=== PATIENT | male | born 1955 | race Caucasian/White ===

== ENCOUNTER 2018-03-10 10:07 | Emergency (ER) | payer OTHER ==
[~2018-03-10] VITALS: Ht 274.3 cm; Wt 8.0 kg
[2018-03-10 10:13] VITALS: Ht 274.3 cm; Wt 8.0 kg
[2018-03-10] MEDS ORDERED: ONDANSETRON 4 MG INJ IV STA (10:53)
[2018-03-10] MEDS ORDERED: SOD CHLORIDE 0.9% 1,000 ML IV STA (10:53)
[2018-03-10] MEDS ORDERED: MECLIZINE 12.5 MG TAB PO ONE (11:00)
[2018-03-10] MEDS ORDERED: MECL12.574 PO (12:24)
--- NOTE | 2018-03-10 12:25 | ERD ---
ER Documentation Chief Complaint Chief Complaint DIZZINESS AND VOMITING TODAY HPI Patient is a 62-year-old male with no medical problems who presents with vomiting and dizziness. The patient feels lightheaded and sweaty as well. He said the symptoms started this morning. It is worse when he moves his head and feels like the room is spinning. He denies pain. He has no diarrhea. There was no blood in the vomit. He has had no treatment as of yet. ROS All systems reviewed and are negative except as per history of present illness. Medications Home Meds Active Scripts Meclizine Hcl* (Antivert*) 12.5 Mg Tab, 25 MG PO Q6H PRN for DIZZINESS, #20 TAB Prov:KEILY MORENO MD 03/10/18 Discontinued Reported Medications [None] No Conflict Check 02/06/10 Allergies Allergies: Coded Allergies: No Known Allergies (Verified Allergy, Mild, 02/06/10) PMhx/Soc Medical and Surgical Hx: pt denies Medical Hx History of Surgery: No Anesthesia Reaction: No Hx Neurological Disorder: No Hx Respiratory Disorders: No Hx Cardiac Disorders: No Hx Psychiatric Problems: No Hx Miscellaneous Medical Probl: No Hx Alcohol Use: No Hx Substance Use: No Hx Tobacco Use: No Smoking Status: Never smoker FmHx Family History: No coronary disease Physical Exam Vitals Vital Signs Date Temp Pulse Resp B/P (MAP) Pulse Ox O2 O2 Flow FiO2 Time Delivery Rate 03/10/18 69 16 121/74 100 Room Air 13:12 (90) 03/10/18 98.1 64 18 146/80 99 10:13 (102) Physical Exam Const: No acute distress Head: Atraumatic Eyes: Normal Conjunctiva ENT: Normal External Ears, Nose and Mouth. Neck: Full range of motion. No meningismus. Resp: Clear to auscultation bilaterally Cardio: Regular rate and rhythm, no murmurs Abd: Soft, non tender, non distended. Normal bowel sounds Skin: No petechiae or rashes Back: No midline or flank tenderness Ext: No cyanosis, or edema Neur: Awake and alert, cranial nerves II through XII are intact, strength is 5 out of 5 in all 4 extremities, no slurred speech Psych: Normal Mood and Affect Result Diagram: 03/10/18 1059 03/10/18 1059 Results 24 hrs Laboratory Tests Test 03/10/18 10:59 White Blood Count 8.5 10^3/ul Red Blood Count 4.99 10^6/ul Hemoglobin 14.7 g/dl Hematocrit 43.8 % Mean Corpuscular Volume 87.8 fl Mean Corpuscular Hemoglobin 29.5 pg Mean Corpuscular Hemoglobin Concent 33.6 g/dl Red Cell Distribution Width 13.7 % Platelet Count 214 10^3/UL Mean Platelet Volume 9.2 fl Immature Granulocytes % 0.400 % Neutrophils % 79.0 % Lymphocytes % 13.8 % Monocytes % 6.2 % Eosinophils % 0.5 % Basophils % 0.1 % Nucleated Red Blood Cells % 0.0 /100WBC Immature Granulocytes # 0.030 10^3/ul Neutrophils # 6.7 10^3/ul Lymphocytes # 1.2 10^3/ul Monocytes # 0.5 10^3/ul Eosinophils # 0.0 10^3/ul Basophils # 0.0 10^3/ul Nucleated Red Blood Cells # 0.0 10^3/ul Urine Color YELLOW Urine Clarity CLEAR Urine pH 5.0 Urine Specific [place] 1.021 Urine Ketones TRACE mg/dL Urine Nitrite NEGATIVE mg/dL Urine Bilirubin NEGATIVE mg/dL Urine Urobilinogen NEGATIVE mg/dL Urine Leukocyte Esterase NEGATIVE Evelio/ul Urine Hemoglobin NEGATIVE mg/dL Urine Glucose NEGATIVE mg/dL Urine Total Protein NEGATIVE mg/dl Sodium Level 141 mmol/L Potassium Level 3.8 mmol/L Chloride Level 104 mmol/L Carbon Dioxide Level 25 mmol/L Anion Gap 12 Blood Urea Nitrogen 16 mg/dl Creatinine 1.13 mg/dl Est Glomerular Filtrat Rate mL/min > 60 mL/min Glucose Level 140 mg/dl Calcium Level 9.4 mg/dl Total Bilirubin 0.2 mg/dl Direct Bilirubin 0.00 mg/dl Indirect Bilirubin 0.2 mg/dl Aspartate Amino Transf (AST/SGOT) 41 IU/L Alanine Aminotransferase (ALT/SGPT) 37 IU/L Alkaline Phosphatase 105 IU/L Troponin I < 0.012 ng/ml Total Protein 7.9 g/dl Albumin 4.5 g/dl Globulin 3.40 g/dl Albumin/Globulin Ratio 1.32 Lipase 78 U/L Current Medications Medications Dose Sig/Miguel Start Time Status Last (Trade) Ordered Route PRN Stop Time Admin Dose Reason Admin Sodium 1,000 ml @ Q1H STAT 03/10/18 DC 03/10/18 Chloride 1,000 mls/hr IV 10:53 11:00 03/10/18 11:52 Ondansetron 4 mg ONCE STAT 03/10/18 DC 03/10/18 HCl (Zofran IV 10:53 11:00 Inj) 03/10/18 10:55 Meclizine 25 mg ONCE ONCE 03/10/18 DC 03/10/18 HCl PO 11:00 11:00 (Antivert) 03/10/18 11:01 Procedures/MDM EKG read by me: Rate/Rhythm: Regular rate and rhythm at a rate of 64 Intervals: Normal Impression: No evidence of ischemia or arrhythmia Departure Diagnosis: Primary Impression: Dizziness Condition: Fair Patient Instructions: Dizziness, Unk Cause Referrals: Dr. Adams Additional Instructions: Llame al doctor MAANA y jonathan adriel CECY PARA DENTRO DE 1-2 BUENO.Dgale a la secretaria que nosotros le instruimos hacer esta cecy.Avise o llame si connell condicin se empeora antes de la cecy. Regresa aqui si peor o no mejor. KEILY MORENO MD Mar 10, 2018 12:25
[2018-03-10 13:12] VITALS: BP 121/74; PULSE 69; RESP 16
== END 2018-03-10 13:12 | disposition home or self-care (01) ==
LOC: E/R 10:07
DX: R42 Dizziness and giddiness (principal)
CPT/HCPCS: 36415; 70450; 80053; 81003; 83690; 84484; 85025; 93005; 96374; 99285; J2405; J7030